=== PATIENT | female | born 1985 | race Caucasian/White ===

== ENCOUNTER 2018-12-02 13:35 | Day surgery (SDC) | payer OTHER ==
[2018-12-02 14:04] VITALS: BMI 32.4
[2018-12-02] MEDS ORDERED: HYDROcodone/Acetaminophen 5/325 mg Tablet PO SCH (18:30)
== END 2018-12-02 18:45 | disposition home or self-care (01) ==
LOC: L&D/OP 13:35
PROVIDERS: ATTEND Family Medicine
DX: O47.9 False labor, unspecified (principal)
CPT/HCPCS: 99283

== ENCOUNTER 2018-12-22 16:10 | Inpatient (IN) | payer OTHER ==
[2018-12-22 21:40] VITALS: BMI 32.4
[2018-12-22] MEDS ORDERED: HYDROcodone/Acetaminophen 5/325 mg Tablet PO PRN (21:40)
[2018-12-22] MEDS ORDERED: Ondansetron PF 4 MG/2 ML Vial IVP PRN (21:40)
[2018-12-22] MEDS ORDERED: Butorphanol Tartrate 1 MG/ML VIAL SLOW IVP PRN (21:40)
[2018-12-22] MEDS ORDERED: Misoprostol 200 MCG TAB PR PRN (21:40)
[2018-12-22] MEDS ORDERED: Diphenoxylate HCl/Atropine Tablet PO PRN (21:40)
[2018-12-22] MEDS ORDERED: Carboprost 250 MCG/ML AMP IM PRN (21:40)
[2018-12-22] MEDS ORDERED: Promethazine HCl 25 MG/ML VIAL IM PRN (21:40)
[2018-12-22] MEDS ORDERED: Methylergonovine 0.2 MG/ML VIAL IM PRN (21:40)
[2018-12-22] MEDS ORDERED: Ibuprofen 800 MG TAB PO PRN (21:40)
[2018-12-22] MEDS ORDERED: NS w/ Oxytocin 10 units 500 ML IV SCH ×2 (21:40)
[2018-12-22] MEDS ORDERED: Lidocaine 1% (PF) 30 ML VIAL SC PRN (21:40)
[2018-12-22] MEDS ORDERED: hydrALAZINE 20 MG/ML VIAL SLOW IVP PRN (21:40)
[2018-12-22] MEDS: Lactated Ringer's 1,000 ML IV SCH (22:15)
[2018-12-22] MEDS: Misoprostol 100 MCG TAB PO SCH (22:24)
[2018-12-22 22:25] LABS: Hemoglobin 13.1 g/dL (12.0-16.0); Mean Corpuscular HGB CONC 34.5 g/dL (32.0-36.0); Mean Corpuscular Hemoglobin 30.9 pg (27.0-31.0); Mean Corpuscular Volume 89.6 fL (78.0-98.0); Mean Platelet Volume 9.1 fL (7.4-10.4); Platelet Count 205 thou/uL (130-400); RBC Distribution Width 12.7 % (11.5-14.5); Red Blood Cell (RBC) Count 4.25 mill/uL (4.20-5.40); White Blood Cell (WBC) Count 12.1 thou/uL (4.8-10.8)
[2018-12-22 23:03] LABS: Syphilis Antibody Nonreactive (Nonreactive); Syphilis Antibody Index 0.02 S/CO (<1.00 Non-Reactive)
[2018-12-22 23:04] LABS: HBSAg Index 0.18 S/CO (0-0.99); Hep B Surf Ag Non-Reactive S/CO (NonReactive)
[2018-12-23] MEDS: Misoprostol 100 MCG TAB PO SCH ×3 (02:36→12:09)
[2018-12-23] MEDS: Lactated Ringer's 1,000 ML IV SCH ×2 (02:38→09:26)
[2018-12-23] MEDS ORDERED: Calcium Carbonate 500 MG ChewTAB PO PRN (03:07)
[2018-12-23] MEDS ORDERED: Lidocaine 1% (PF) 30 ML VIAL ONE (07:17)
[2018-12-23] MEDS ORDERED: NS / Oxytocin 40 units/1000ml 0 ML ONE (07:17)
[2018-12-23] MEDS ORDERED: Fentanyl 4 mcg/Bup 0.1% Cadd 100 ML ONE (07:18)
[2018-12-23] MEDS ORDERED: Acetaminophen 325 MG TAB PO PRN (08:22)
[2018-12-23] MEDS ORDERED: Lactated Ringer's 500 ML IV PRN (08:22)
[2018-12-23] MEDS ORDERED: diphenhydrAMINE 50 MG/ML VIAL IVP PRN (08:22)
[2018-12-23] MEDS ORDERED: Naloxone HCl 0.4 mg/ml Vial IVP PRN ×2 (08:22)
[2018-12-23] MEDS ORDERED: Ondansetron PF 4 MG/2 ML Vial IVP PRN ×2 (08:22→14:11)
[2018-12-23] MEDS ORDERED: ePHEDrine/0.9% NaCl/PF SYRINGE 50 mg/10 ml SLOW IVP PRN (08:22)
[2018-12-23] MEDS ORDERED: Promethazine HCl 25 MG/ML VIAL IM PRN ×2 (08:22→14:11)
[2018-12-23] MEDS ORDERED: Fentanyl 4 mcg/Bupivacaine 0.1% Cassette 100 ML EPIDURAL SCH (08:30)
[2018-12-23] MEDS ORDERED: Communication Order-Pharmacy FS SCH (08:30)
[2018-12-23] MEDS: NS / Oxytocin 40 units/1000ml 1,000 ML IV PRN ×2 (12:22→13:21)
[2018-12-23] MEDS ORDERED: NS / Oxytocin 40 units/1000ml 1,000 ML IV SCH (14:11)
[2018-12-23] MEDS ORDERED: HYDROcodone/Acetaminophen 5/325 mg Tablet PO PRN (14:11)
[2018-12-23] MEDS ORDERED: Benzocaine-Menthol 82.5 ML CAN TOP PRN (14:11)
[2018-12-23] MEDS ORDERED: Milk Of Magnesia 30 ML UDCUP PO PRN (14:11)
[2018-12-23] MEDS ORDERED: hydrALAZINE 20 MG/ML VIAL SLOW IVP PRN (14:11)
[2018-12-23] MEDS ORDERED: diphenhydrAMINE 25 MG CAP PO PRN (14:11)
[2018-12-23] MEDS ORDERED: Lanolin Ointment 7 GM TUBE TOP PRN (14:11)
[2018-12-23] MEDS ORDERED: Bisacodyl 10 MG SUPP PR PRN (14:11)
[2018-12-23] MEDS ORDERED: Adacel (T-DAP) 0.5 ML SYRINGE IM ONE (14:11)
[2018-12-23] MEDS: Ibuprofen 800 MG TAB PO SCH ×2 (15:29→22:25)
[2018-12-23] MEDS: Ferrous Sulfate 325 MG TAB PO SCH (18:20)
[2018-12-23] MEDS: Docusate Calcium (SURFAK) 240 MG CAP PO SCH (22:25)
[2018-12-24] MEDS: HYDROcodone/Acetaminophen 5/325 mg Tablet PO PRN ×3 (04:57→16:54)
[2018-12-24] MEDS: Ibuprofen 800 MG TAB PO SCH ×2 (05:01→14:08)
[2018-12-24 07:56] VITALS: BP 131/69; TEMP 98.8
[2018-12-24 08:15] LABS: Hemoglobin 11.6 g/dL (12.0-16.0); Mean Corpuscular HGB CONC 34.7 g/dL (32.0-36.0); Mean Corpuscular Volume 89.3 fL (78.0-98.0); Mean Platelet Volume 8.8 fL (7.4-10.4); Platelet Count 167 thou/uL (130-400); RBC Distribution Width 12.9 % (11.5-14.5); Red Blood Cell (RBC) Count 3.76 mill/uL (4.20-5.40); White Blood Cell (WBC) Count 16.2 thou/uL (4.8-10.8)
[2018-12-24] MEDS ORDERED: Prenatal Vitamin 1 TAB PO SCH (09:00)
[2018-12-24] MEDS: Ferrous Sulfate 325 MG TAB PO SCH ×2 (09:12→14:46)
[2018-12-24] MEDS: Docusate Calcium (SURFAK) 240 MG CAP PO SCH (10:23)
== END 2018-12-24 17:50 | disposition home or self-care (01) | DRG 807 ==
LOC: L&D 20:58 → 3SE 12-23 16:01
PROVIDERS: ADMIT Family Medicine; ATTEND Family Medicine
PROC: 10E0XZZ Delivery of Products of Conception, External Approach (ICD-10-PCS; principal; 2018-12-23)
PROC: 0HQ9XZZ Repair Perineum Skin, External Approach (ICD-10-PCS; 2018-12-23)
PROC: 10907ZC Drainage of Amniotic Fluid, Therapeutic from Products of Conception, Via Natural or Artificial Opening (ICD-10-PCS; 2018-12-23)
PROC: 3E0P7VZ Introduction of Hormone into Female Reproductive, Via Natural or Artificial Opening (ICD-10-PCS; 2018-12-23)
DX: O77.0 Labor and delivery complicated by meconium in amniotic fluid (principal); Z37.0 Single live birth; Z3A.39 39 weeks gestation of pregnancy; O70.0 First degree perineal laceration during delivery
CPT/HCPCS: 36415; 85027; 86780; 86850; 86900; 86901; 87340; J0595; J2001; J2405